=== PATIENT | female | born 1985 | race American Indian/Alaskan Native ===

== ENCOUNTER 2017-09-16 10:02 | Outpatient (CLI) | payer MEDICARE, OTHER ==
--- NOTE | 2017-09-16 11:50 | Mammography Report ---
BILATERAL DIGITAL DIAGNOSTIC MAMMOGRAM with CAD and RIGHT BREAST ULTRASOUND: 09/16/17 CLINICAL: Right palpable breast mass and history of a right breast biopsy in 2013. COMPARISON:No previous mammogram available. She did have a negative targeted right breast ultrasound 05/09/12. FINDINGS: The breasts are heterogeneously dense, which may obscure small masses.Extensive right upper and upper outer diffuse calcifications with benign morphology. The calcifications were evaluated with magnification views and layering is identified with lateral magnification. No mammographic finding and a right upper outer palpable marker. The left breast is negative. Ultrasound of the right breast was performed in the area of nontender palpable lump in the upper outer quadrant. An irregular cyst at 11:45 o'clock 6 cm from the nipple measures 1.5 x 1.1 x 1.1 cm and correlates with the palpable lump. A second cyst at 11 o'clock 10 cm from the nipple measures 1.1 x 1.6 x 0.4 cm. IMPRESSION: Benign cysts and benign calcifications of the right breast. Negative left breast. BI-RADS CATEGORY: 2 -- Benign RECOMMENDATION: Clinical follow-up of the palpable area and routine mammographic screening based on ACS guidelines. ACR BI-RADS MAMMOGRAPHIC CODES: 0 = Needs additional imaging evaluation; 1 = Negative; 2 = Benign; 3 = Probably benign; 4 = Suspicious; 5 = Malignant; 6 = Known biopsy-proven malignancy COMMENT: 1. Dense breast tissue, i.e., adenosis, fibrocystic changes, etc., may obscure an underlying neoplasm. 2. Approximately 10% of cancers are not detected with mammography. 3. A negative mammography report should not delay biopsy if a clinically suspicious mass is present. COMMENT: Patient follow-up letters are generated by our [employer] application.
== END 2017-09-16 10:03 | disposition home or self-care (01) ==
LOC: SPVWC 10:02
PROVIDERS: ATTEND Obstetrics & Gynecology
DX: N60.01 Solitary cyst of right breast (principal); R92.1 Mammographic calcification found on diagnostic imaging of breast
CPT/HCPCS: 77066